=== PATIENT | male | born 1990 | race Caucasian/White ===

== ENCOUNTER 2020-10-06 15:14 | Emergency (ER) | payer MEDICAID, SELFPAY ==
[2020-10-06 15:15] VITALS: BP 121/79; PULSE 86; RESP 15; TEMP 36.8; O2SAT 100; BMI 24.4
--- NOTE | 2020-10-06 15:31 | EX.ED.VIS.EY ---
HPI History of Present Illness Chief Complaint: Eye Problem Informant: patient Onset/Context/Timing Location: Bilateral Eyes Onset: Days (3) Context: Gradual Onset Timing: Continuous Worsened by: Nothing Relieved by: Benadryl Associated Symptoms Associated Symptoms - Eyes: Drainage and Eyelid swelling; Negative for Burning, Crusting, Foreign body sensation, Itching, Matting, Pain, Photophobia and Redness History of injury: No Visual correction: None Narrative Narrative: Patient presents with redness and swelling to both eyes that has been getting worse over the past 3 days. Patient states it started in his forehead and now is localized to both periorbital areas. Patient states the swelling did improve with some Benadryl at home. Patient admits to some watery drainage. Patient denies any matting or crusting. Patient denies any redness. Patient denies any foreign body sensation. Patient denies any trauma or injury. Patient does not wear glasses or contacts. PFSH PFSH no medical history Home Medications NK 10/06/20 [History Last Taken Unknown] Allergy/AdvReac Type Severity Reaction Status Date / Time No Known Allergies Allergy Verified 10/06/20 15:14 Surgical History History of cholecystectomy Social History (Updated 10/06/20 @ 15:[address] Slava Best, ) Smoking Status: Current every day smoker tobacco type: cigarettes alcohol intake: current alcohol intake frequency: a few times a week substance use type: marijuana ROS ROS ED Constitutional Constitutional ED: Denies chills or fever(s) Eyes Eyes: Denies blurry vision or change in vision ENT ENT ED: Denies rhinorrhea or sore throat Cardiovascular Cardiovascular: Denies chest pain or palpitations Respiratory/Chest Respiratory/Chest: Denies cough or dyspnea Gastrointestinal Gastrointestinal: Denies nausea or vomiting Genitourinary Genitourinary ED: Denies dysuria or hematuria Musculoskeletal Musculoskeletal: Reports neck pain; Denies back pain Integumentary Denies abscess or rash Neurologic Neurologic: Denies headache(s) or weakness Allergic/Immunologic Allergic/Immunologic ED: Denies mouth swelling or urticaria EXAM Physical Exam Const Vital Signs: 10/06/20 15:15 Temperature 98.2 F Temperature Source Temporal Pulse Rate 86 Respiratory Rate 15 Blood Pressure 121/79 H Blood Pressure Mean 93 Pulse Ox 100 Oxygen Delivery Method Room Air Positive well nourished and well developed General Appearance ED: well developed HEENT atraumatic Eyes General Eye ED: Yes normal appearance of both eyes and normal light reflex Periorbital: periorbital findings abnormal bilateral swelling Eyelid: eyelids abnormal right upper eyelid (Swelling), right lower eyelid swelling, left upper eyelid swelling and left lower eyelid swelling Conjunctiva: conjunctiva normal Sclera: sclera normal Pupil: PERRL Direct Ophthalmoscopy: normal light reflex Neck supple and no JVD Neuro oriented x3, CN's II-XII intact bilaterally, moves all extremities and no sensory deficits noted Sensorium / Orientation: alert MDM MDM MDM Narrative Medical decision making narrative: Tetracaine and fluorescein dye was applied. Under slit lamp examination, there is no corneal abrasion. There are no foreign bodies noted. There is no discharge or drainage. Patient was advised that this most likely allergic reaction. Patient was instructed to take [id number] Claritin, Shanae, or Zyrtec as needed for swelling. Patient was instructed to use ice to the area. Patient was instructed to follow-up with his primary care physician in 5 to 7 days. Patient understood and was agreeable with the plan. All questions were answered. Discharge Plan Triage Chief Complaint: Eye Problem ED Provider: Slava Best Dx/Rx/DC Orders Clinical Impression: Allergic reaction Instructions: ED Conjunctivitis, Allergic Prescriptions: No Action NK RF: 0 Primary Care Provider: Care Physician,No Primary Referrals: Care Physician,No Primary [Primary Care Provider] - Arash Medina MD [STAFF PHYSICIAN] - 5-7 Days Disposition Disposition: Home, Self Care
[2020-10-06 17:00] VITALS: PULSE 74; RESP 16
[2020-10-06] MEDS: Tetracaine 0.5% Ophthalmic Bottle OPHTHALMIC (17:00)
[2020-10-06] MEDS: Fluorescein 1 MG STRIP 1 STRIP OPHTHALMIC (17:01)
== END 2020-10-06 17:02 | disposition home or self-care (01) ==
PROVIDERS: Emergency Provider Emergency Medicine
DX: T78.40XA Allergy, unspecified, initial encounter (principal); F17.210 Nicotine dependence, cigarettes, uncomplicated; X58.XXXA Exposure to other specified factors, initial encounter
CPT/HCPCS: 99283

== ENCOUNTER 2022-08-25 11:45 | Emergency (ER) | payer MEDICAID, SELFPAY ==
[2022-08-25 11:46] VITALS: BP 118/81; PULSE 79; RESP 16; TEMP 36.6; O2SAT 100
--- NOTE | 2022-08-25 12:09 | EKG12_ITS ---
Test Reason : Blood Pressure : / mmHG Vent. Rate : 058 BPM Atrial Rate : 058 BPM P-R Int : 176 ms QRS Dur : 114 ms QT Int : 418 ms P-R-T Axes : 053 -61 051 degrees QTc Int : 410 ms Sinus bradycardia with sinus arrhythmia Left anterior fascicular block Abnormal ECG Confirmed by ANIBAL MONSIVAIS, SUSY ([id number]), news assignment editor BELIA CAMACHO ([id number]) on 08/28/2022 1:16:47 PM Referred By: HIPOLITO Confirmed By:CARRILLO BARNETT MD
--- NOTE | 2022-08-25 12:23 | CM.ED ---
[facility] Crisis called to report they were on site with patient and law enforcement due to family concerns with depression/SI. Pt determined to be a danger to self with SI and a plan and was cooperative to come to the ED with his sister. Crisis evaluated and is recommending placement at this time. Daria Wing LAUNDRY ROOM ATTENDANT, FIELD IRONWORKER
--- NOTE | 2022-08-25 12:29 | EX.ED.DYSGE1 ---
HPI <JOSY Salamanca - Last Filed: 08/25/22 14:02> History of Present Illness Chief Complaint: Suicidal Narrative Narrative: 32-year-old male presents with suicidal ideation. States he has a history of depression which has never been treated. Its been worse recently due to multiple stressors but he will not give details. He states he lives with a friend and is unemployed. He has been thinking of hanging himself or shooting himself with a gun. He does not personally own a gun but there are firearms in the home. His family was concerned and called crisis who sent him to the ED for medical clearance. He is accompanied by his sister. He states he takes no medications and does not see any kind of doctor or psychiatrist. He has no history of suicide attempts or psychiatric admissions. PFSH <JOSY Salamanca - Last Filed: 08/25/22 14:02> [facility] Home Medications NK 10/06/20 [History Last Taken Unknown] Allergy/AdvReac Type Severity Reaction Status Date / Time No Known Allergies Allergy Verified 08/25/22 12:07 Surgical History (Updated 08/25/22 @ 12:05 by Melly Thompson) H/O inguinal hernia repair History of cholecystectomy Social History (Updated 10/06/20 @ 15:[address] Slava Best, ) Smoking Status: Current every day smoker tobacco type: cigarettes alcohol intake: current alcohol intake frequency: a few times a week substance use type: marijuana ROS <JOSY Salamanca - Last Filed: 08/25/22 14:02> ROS ED ROS Narrative Constitutional: Negative for fever, chills, malaise. CVS: Negative for chest pain. Respiratory: Negative for shortness of breath. GI: Negative for abdominal pain, nausea, vomiting. Neuro: Negative for headache. EXAM <JOSY Salamanca Last Filed: 08/25/22 14:02> Physical Exam Narrative Exam Narrative: CONST: Patient sitting in no acute distress. EYES: Normal inspection. NECK: Normal inspection. RESP: No respiratory distress, CTAB. CVS: Regular rate and rhythm, no murmur, no gallop. SKIN: Color normal, no rash, warm, dry, intact. EXTREMITIES: Normal appearance, no pedal edema. NEURO: Oriented x4. PSYCH: Flat affect. Const Vital Signs: 08/25/22 11:46 08/25/22 18:14 Temperature 97.8 F 97.3 F L Temperature Source Temporal Temporal Pulse Rate 79 58 L Respiratory Rate 16 16 Blood Pressure 118/81 H 118/83 H Blood Pressure Mean 93 94 Pulse Ox 100 99 Oxygen Delivery Method Room Air Room Air <Dr. Slava Best DO - Last Filed: 08/25/22 22:08> Physical Exam Const Vital Signs: 08/25/22 11:46 08/25/22 18:14 Temperature 97.8 F 97.3 F L Temperature Source Temporal Temporal Pulse Rate 79 58 L Respiratory Rate 16 16 Blood Pressure 118/81 H 118/83 H Blood Pressure Mean 93 94 Pulse Ox 100 99 Oxygen Delivery Method Room Air Room Air MDM <JOSY Salamanca - Last Filed: 08/25/22 14:02> MDM MDM Narrative Medical decision making narrative: Patient was sent in by crisis and is accompanied by his sister here for evaluation of suicidal ideation. He has a flat affect but is calm and answers questions appropriately. Screening medical exam unremarkable. Labs were ordered for medical clearance. Since he does have untreated depression with no physician support and plan to hang himself or shoot himself with access to firearms I do think he will require inpatient treatment. CBC and BMP are unremarkable. Alcohol negative. Urine tox screen positive for THC. Patient is medically cleared for transfer to psychiatric facility. Consults: Crisis Differential: depression, anxiety, SI, mood disorder Lab Data Attestation: I reviewed the patient's lab results. Labs: Laboratory Results - last 24 hr 08/25/22 08/25/22 12:35 13:00 WBC 8.7 RBC 4.96 Hgb 15.1 Hct 46.3 MCV 93.3 MCH 30.4 MCHC 32.6 RDW Std Deviation 49.4 H RDW Coeff of Clair 14.4 Plt Count 371 MPV 9.2 Immature Gran % (Auto) 0.600 Neut % (Auto) 46.1 L Lymph % (Auto) 35.0 [place] % (Auto) 9.9 Eos % (Auto) 6.9 H Baso % (Auto) 1.5 H Absolute Neuts (auto) 4.0 Absolute Lymphs (auto) 3.05 Nucleated RBC % 0 Sodium 139 Potassium 3.4 L Chloride 106 Carbon Dioxide 30.0 Anion Gap 3 L BUN 18 Creatinine 1.01 Estim Creat Clear Calc 118.66 Est GFR (MDRD) Af Amer 110 Est GFR (MDRD) Non-Af 91 BUN/Creatinine Ratio 17.8 Glucose 108 H Calcium 8.9 Urine Opiates Screen NEGATIVE Urine Methadone Screen NEGATIVE Ur Barbiturates Screen NEGATIVE Ur Phencyclidine Scrn NEGATIVE Ur Amphetamines Screen NEGATIVE MDMA (Ecstasy) Screen NEGATIVE U Benzodiazepines Scrn NEGATIVE Urine Cocaine Screen NEGATIVE U Cannabinoids Screen POSITIVE H Ur Drug Screen Comment Ethyl Alcohol < 3.0 EKG Initial EKG: Attestation: I personally reviewed and interpreted this EKG as follows: Interpretation: Sinus Rhythm and No Acute Injury Pattern Comments: Sinus bradycardia with sinus arrhythmia at 58 bpm, left anterior fascicular block, no acute ischemic changes <Dr. Slava Best, DO - Last Filed: 08/25/22 22:08> MDM Lab Data Labs: Laboratory Results - last 24 hr 08/25/22 08/25/22 12:35 13:00 WBC 8.7 RBC 4.96 Hgb 15.1 Hct 46.3 MCV 93.3 MCH 30.4 MCHC 32.6 RDW Std Deviation 49.4 H RDW Coeff of Clair 14.4 Plt Count 371 MPV 9.2 Immature Gran % (Auto) 0.600 Neut % (Auto) 46.1 L Lymph % (Auto) 35.0 [place] % (Auto) 9.9 Eos % (Auto) 6.9 H Baso % (Auto) 1.5 H Absolute Neuts (auto) 4.0 Absolute Lymphs (auto) 3.05 Nucleated RBC % 0 Sodium 139 Potassium 3.4 L Chloride 106 Carbon Dioxide 30.0 Anion Gap 3 L BUN 18 Creatinine 1.01 Estim Creat Clear Calc 118.66 Est GFR (MDRD) Af Amer 110 Est GFR (MDRD) Non-Af 91 BUN/Creatinine Ratio 17.8 Glucose 108 H Calcium 8.9 Urine Opiates Screen NEGATIVE Urine Methadone Screen NEGATIVE Ur Barbiturates Screen NEGATIVE Ur Phencyclidine Scrn NEGATIVE Ur Amphetamines Screen NEGATIVE MDMA (Ecstasy) Screen NEGATIVE U Benzodiazepines Scrn NEGATIVE Urine Cocaine Screen NEGATIVE U Cannabinoids Screen POSITIVE H Ur Drug Screen Comment Ethyl Alcohol < 3.0 Treatment and Re-Evaluation :: I have personally performed a face to face assessment of the patient and have reviewed the GUILHERME Note. I performed a substantive portion of the visit including all aspects of the following. My yan findings include: History: Patient presents with suicidal ideations. Patient states that his family brought him in for suicidal ideations. Patient states he does not have any suicidal ideations. Patient was evaluated by crisis who felt that the patient would benefit from inpatient admission. Patient was then referred to the emergency department for medical clearance. Exam: Vital signs are stable. Patient is afebrile. Patient is in no acute distress. Oral mucosa is pink and moist. Neck is supple. Trachea is midline. There is no JVD. Heart was regular rate and rhythm. Lungs are clear and equal bilaterally. Abdomen is soft and nontender. Cranial nerves II through XII are intact. There are no focal motor or sensory deficits noted. Patient does have a flat affect and depressed mood. Patient is currently denying any suicidal ideations. Medical Decision Making: Medical screening labs will be obtained. CBC will be obtained to assess for leukocytosis and anemia. Basic metabolic profile will be obtained to assess for electrolyte abnormality and renal function. Serum alcohol level will be obtained to assess for alcohol intoxication. Urine tox screen will be obtained to assess for substance abuse. COVID-19 rapid antigen will be obtained to assess for COVID-19 infection. EKG will be obtained to assess for cardiac dysrhythmia and QTc prolongation. On my independent interpretation, EKG showed a sinus bradycardia with a rate of 58. There are no acute changes noted. CBC was reviewed and was within normal limits. Basic metabolic profile was reviewed. Potassium was slightly low at 3.4. Anion gap was normal. Serum alcohol level was reviewed and was less than 3.0. Urine tox screen was reviewed and was positive for cannabinoids. COVID-19 rapid antigen was reviewed and was negative. Patient is medically cleared for psychiatric placement. Patient will be discussed with crisis. Charlo slip was placed on the chart. Crisis was able to have the patient placed at [facility] for psychiatry. Patient was transferred there. Discharge Plan Triage Chief Complaint: Suicidal ED Midlevel Provider: Ana Luisa Mattson ED Provider: Slava Best Dx/Rx/DC Orders Clinical Impression: Depression with suicidal ideation Prescriptions: No Action NK Primary Care Provider: Care Physician,No Primary Referrals: Care Physician,No Primary [Primary Care Provider] - Disposition Disposition: Psychiatric Hospital or Unit Discharge Location: [facility] Discharge Date/Time: 08/25/22 19:56
[2022-08-25 12:40] VITALS: BMI 23.7
[2022-08-25 12:46] LABS: Absolute Lymphocyte Count 3.05 X10^3/uL (0.83-4.51); Basophil# 0.13 X10^3/uL; Basophil% 1.5 % (0-1); Eosinophils% 6.9 % (0-5); Hematocrit 46.3 % (40-54); Hemoglobin 15.1 g/dL (13.0-16.5); Lymphocyte # 3.05 X10^3/ul (0.83-4.51); Mean Corp Hgb Conc 32.6 g/dL (32-36); Mean Corpuscular Hgb 30.4 pg (27.0-32.0); Mean Corpuscular Volume 93.3 fL (80-94); Mean Platelet Vol. 9.2 fl (6.2-12.0); Monocyte# 0.86 X10^3/uL; Monocyte% 9.9 % (0-10); NRBC Flagged by Analyzer 0 % (0-5); Neutrophil # 4.02 X10^3/uL (2.7-7.7); Neutrophil % 46.1 % (47-70); Platelet Count 371 K/mm3 (150-450); RBC Distribution Width CV 14.4 % (11.6-14.6); RBC Distribution Width SD 49.4 fl (35.1-43.9); Red Blood Count 4.96 M/mm3 (4.6-6.2); White Blood Count 8.7 K/mm3 (4.4-11.0)
[2022-08-25 13:00] LABS: Anion Gap 3 (5-15); BUN 18 mg/dL (7-18); BUN/Creat Ratio 17.8 RATIO (10-20); Calcium,Total 8.9 mg/dL (8.5-10.1); Chloride 106 mmol/L (98-107); Creatinine, Serum 1.01 mg/dL (0.70-1.30); EST Glomerular Filtration Rate 91 mL/min (>60); Est Glom Filt Rate - Afr Amer 110 mL/min (>60); Estimated Creatinine Clearance 118.66 ml/min; Glucose 108 mg/dL (74-106); Potassium 3.4 mmol/L (3.5-5.1); Sodium Level 139 mmol/L (136-145)
[2022-08-25 13:10] LABS: Alcohol, Blood (Medical)-Serum < 3.0 mg/dL
[2022-08-25 13:51] LABS: Amphetamine Urine VISTA NEGATIVE (<1000 ng/mL); Barbiturate Urine VISTA NEGATIVE (< 200 ng/mL); Benzodiazepine Urine VISTA NEGATIVE (< 200 ng/mL); Cocaine Urine VISTA NEGATIVE (< 300 ng/mL); Ecstacy Urine VISTA NEGATIVE (< 500 ng/mL); Methadone Urine VISTA NEGATIVE (< 300 ng/mL); PCP Urine VISTA NEGATIVE (< 25 ng/mL); THC Urine VISTA POSITIVE (< 50 ng/mL); Vista UDS pH Range 6
[2022-08-25 18:14] VITALS: BP 118/83; PULSE 58; RESP 16; TEMP 36.3; O2SAT 99
[2022-08-25] MEDS: LORazepam 0.5 MG Tablet PO (19:41)
== END 2022-08-25 19:56 ==
PROVIDERS: Physician Assistant; Emergency Provider Emergency Medicine; Visit Provider Emergency Medicine
DX: F32.A Depression, unspecified (principal); R45.851 Suicidal ideations; F12.90 Cannabis use, unspecified, uncomplicated; F17.210 Nicotine dependence, cigarettes, uncomplicated
CPT/HCPCS: 36415; 80048; 80307; 82077; 85025; 87811; 93005; 99284

== ENCOUNTER 2022-09-04 08:00 | Outpatient (RCR) | payer MEDICAID, SELFPAY ==
--- NOTE | 2022-09-04 09:00 | BH.SGPN.GN ---
Behaviors/Verbalizations/Mental Status: [] Eye contact is good. Motor activity is appropriate. Appearance is casual. Speech is Appropriate. Mood is anxious. Affect is congruent. Thoughts are linear and logical. No evidence of psychosis. Reviewed daily check in sheet and pt reports 1/5 for suicidal thoughts and 0/5 for intent. Completed [place] [facility] prior to group. Client Response/Progress/Benefit: [] Pt participated when prompted. Attentive. Daily symptom tracker notes 3/5 for anxiety and 1/5 for depression. This is pt's first day in IOP and he introduced himself to the group. Pt states that he has been stuck in his head which has exacerbated his depression and anxiety. Briefly shared his recent struggles. I can't get away from my thoughts they are always there. I just want to feel better about myself in general. Group empathized with his struggles and provided support and encouragement which was beneficial. No progress noted as this was pt's first day in IOP. Will continue in [facility] to prevent decompensation/re-admission to psych unit, maintain safety, and improve functioning. Narrative Note: []
--- NOTE | 2022-09-04 10:15 | BH.SGPN.GN ---
Behaviors/Verbalizations/Mental Status: []Pt alert and oriented, casually dressed and groomed. Eye contact good. Motor activity appropriate. Speech within normal limits. Affect congruent, mood anxious and depressed. Thoughts linear, logical, no signs of hallucinations or delusions. Client Response/Progress/Benefit: []Pt first day of tx. Responded well to session, attentive and providing to discussion. Pt connected with the quote and discussion reviewing the functions of various emotions. Attentive throughout psychoeducation on the functional role and benefits of guilt, as well as differences between appropriate and inappropriate guilt. Group discussed the harmful impacts of unmanaged guilt which included poor boundaries, feeling inadequate, and creating an unhealthy maintenance cycle. Pt participated in group activity highlighting the impacts of inappropriate guilt in team collaboration or reaching a goal. Pt then completed a self-reflection activity in which they identified their own experiences with inappropriate guilt and impacts on pt?s mental health. Shared struggling with inappropriate guilt related to feeling like a burden and this often leads to increased negative self-talk and isolation. Pt appeared to benefit from learning about the different types of guilt and how unmanaged guilt can impact mental health. Pt will continue IOP tx to promote mood stability, monitor medications, and improve daily functioning. Narrative Note: []
--- NOTE | 2022-09-04 11:15 | BH.SGPN.GN ---
Behaviors/Verbalizations/Mental Status: []Pt alert and oriented, neatly dressed and groomed. Eye contact good. Motor activity appropriate. Speech within normal limits. Affect congruent, mood depressed. Thoughts linear, logical, no signs of hallucinations or delusions. Client Response/Progress/Benefit: [] Pt engaged participant AEB listening attentively to others and providing input throughout group. During challenge activity pt worked cooperatively with small group. Pt made connection that it takes patience and problem solving to work through healthy and unhealthy guilt. Pt worked with his small group to identify strategies to manage unhealthy guilt. Pt stated he often feels inappropriate guilt of feeling like a burden. Pt selected wanting to work on the strategy of recognizing and challenging negative thoughts that reinforce inappropriate guilt. Pt seemed to benefit from learning about strategies to manage appropriate and inappropriate guilt. Pt to continue IOP to prevent decompensation, improve daily functioning, and gain healthy coping skills. Narrative Note: []
--- NOTE | 2022-09-04 15:02 | BH.COMM ---
Communication Note Communication with Client Communication Note: Completed initial paperwork with pt. No changes since intake appointment. Completed the CSSR-S with pt and pt is moderate-high risk. Pt denies any suicide attempts, but pt reports have fleeting SI with intent with the last month. Pt was recently admitted to an inpatient psych unit for suicidal ideations with thoughts of hanging himself. Pt denies any active SI, plan, or intent today. Pt is living with his sister and this is a protective factor. Pt does not have access to guns or stockpiles of medications. Discussed with tx team and Dr. Phan and pt will be admitted with diagnosis of unspecified mood disorder F. 39
--- NOTE | 2022-09-06 08:50 | BH.NA ---
Physical Data Vital Signs Pulse Rate: 68 Blood Pressure: 116/75 Height/Weight Height: 1.83 m Weight:: 74.843 kg Weight in Pounds: 165.0 lbs Nutritional History Appetite Nutritional Instructions: Describe your appetite:: Fair Additional nutritional information:: Client reports at some point in time he weighed 180lbs and has lost some weight. Client states his appetite varies. Functional Assessment Sleep Pattern Describe any problems with sleeping: Client states he is sleeping 6-8 hours per night, but does wake up every few hours. Sensory/Communication Assess Communication Problems Do you have difficulty understanding what people are saying?: No Medical Problems/History Pain Assessment Do you have acute or chronic pain?: No Surgical History Surgical History Have you had any surgeries? If so, list type and date:: Yes (cholecystectomy, inguinal hernia repair) Substance Abuse Substance Abuse Please describe substance abuse in the last 30 days:: Client states he used to drink some alcohol, but denies use in several months. Client states he has been a cigarette smoker since he was 16 years old and currently smokes 1 pack per day. Client states he uses marijuana 3-4 times per week, and states he has been a regular marijuana user since age 16. Client states he drinks 3 caffeinated drinks per day, and states 1-2 times a week drinks an energy drink. Mental Status Summary Mental Status Significant Findings/Observations on Appearance and Mood:: Client is alert and oriented x 4. Client is casually groomed. Client is cooperative with assessment. Client makes good eye contact. Client's voice has normal rate and volume. Client appears mildly depressed. Client has appropriate affect. Client makes logical associations and has normal processing. Client denies delusions/hallucinations. Client reports some passive SI at times since his hospitalization, but denies intent/plan. Past Psychiatric History MH Treatment Hx Past Psychiatric Medications:: None, Zoloft is the first medication he has been on for mental health Age of first mental health symptoms: Client states he has had some depression and SI off and on since he was a teenager. Describe (age, circumstance, etc) any past hospitalizations: 08/25-08/29/22- [facility] for suicidal ideations with thought to either shoot self or hang self Current providers for mental health treatment (counselor, psychiatrist, family service caseworker, etc.): Client has an appointment to see Dr. Abernathy on [place] [address] Fall Risk Assessment Age Age: Less than 60 Mental Status Mental Status: Willing & able to ask for assistance when needed Physical Status Physical Status: No problems Impairments Impairments: None Elimination Elimination: Continent AND independent Gait or Balance Gait or Balance: Walks independently Hx of Falls History of falls in the past 6 months: No known history Medications/Substances Psychotropics:: Antidepressants Medications/substances used within the past 24 hours or ordered to administer: 1-2 of the medications/substances listed above Total Score Total Points:: 1 RN Summary of Impressions Impressions Recommendations Impressions: Psychiatric Issues: 1. Rule out bipolar, NOS 2. Major depressive disorder, recurrent, severe without psychosis 3. Cannabis use disorder 4. Cluster B traits 5. History of alcohol use disorder Level of Care How do the client's current symptoms and functional deficits support need for this level of care?: Client was referred to IOP after his family had him seen by Crisis for suicidal ideations on 08/25/22. Client was then hospitalized at [facility] until 08/29/22. Client states he has had suicidal ideations off and on since he was a teenager. Since his hospitalization, Client states he has had some passive SI but denies intent/plan. Client does have a history of self-injury, and states he last hurt himself over a month ago. Client does report anhedonia, isolation, and decreased energy. IOP will promote gains and prevent further decompensation while providing social support and skills training.
--- NOTE | 2022-09-06 09:00 | BH.SGPN.GN ---
Behaviors/Verbalizations/Mental Status: [] Eye contact is poor. Motor activity is WNL. Appearance is casual. Speech is Appropriate. Mood is dysthymic and anxious. Affect is congruent. Thoughts are linear and logical. No evidence of psychosis. Reviewed daily check in sheet and reports a 1/5, with 5 being severe, for suicidal ideation, and a 0/5 for suicidal intention. This is below pt's baseline. Does not present as imminent risk for harm to self or others. Client Response/Progress/Benefit: [] Pt participated when prompted. Attentive. Daily symptom tracker notes 2/5 for depression and 1/5 for anxiety. Client reported mental health positive as getting to spend time with his nephew. Stated it was nice to connect with his nephew. Client reported additional win is cutting back on smoking cigarettes. Client reported current stressor as being social because he gets really anxious. Seemed to benefit from support from peers. Will continue in IOP to increase healthy coping skills, decrease avoidance of anxious situations, and prevent decompensation.
[2022-09-06 09:12] VITALS: BP 116/75; PULSE 68
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
--- NOTE | 2022-09-06 13:21 | BH.DR.ITP ---
Initial Treatment Plan Patient Information Visit Information: ADMISSION DATE: EXPECTED LOS: 4-6 weeks Problems/Symptoms Problem #1:: Depression Symptom:: Sadness, hopelessness, worthlessness, guilt, anhedonia, passive thoughts of , passive, fleeting suicidal ideation Problem #2:: Anxiety Symptom:: Worry, rumination
--- NOTE | 2022-09-06 15:10 | BH.MTP_ITS ---
Master Treatment Plan Patient Information Program Physician:: Dr. Mary Grace Phan Primary Therapist:: Mary RAMOS Psychiatric Diagnoses Psychiatric Diagnoses:: Rule out bipolar, NOS; Major depressive disorder, recurrent, severe without psychosis; Cannabis use disorder; Cluster B traits; History of alcohol use disorder Diagnosis Code(s):: F 33.2 Estimated LOS Estimated LOS (in weeks):: 6 Problem/Goal #1 Problem/Goal #1 Stated Goal:: Pt will reduce depressive symptoms, negative self-talk, thoughts of , hopelessness, and guilt due to Major Depressive Disorder through [facility] Services. Description of Barriers: Pt reports utilizing drinking and smoking marijuana to cope with his depression and anxiety. Pt reports a very negative view of self, feeling like a burden, and worthlessness. Pt also struggles with communicating his needs and isolation. Functional Impact: Pt is a 32-year-old male with a history of depression and anxiety. Pt was referred to [facility] tx following a recent psychiatric admission due to suicidal ideations with plans to hang or shoot himself. Pt currently endorses a depressed mood, lack of motivation, lack of energy, anhedonia, passive SI, ruminations, feeling like a burden, hopelessness, worthlessness, and negative view of self. Pt reports he isolates and withdraws from supports. Pt also has not been engaging in hobbies he used to enjoy. Pt's mental health is impacting his familial, social, and occupational functioning. Goal Relevant Strengths/Supports: Pt is connected with outpatient psychiatry and has support from his sister. Pt enjoys art and reading. Objectives Objective #1: Stated Objective: Pt will learn and utilize 2-3 healthy coping strategies to better manage depressive symptoms and reduce DSM-5 symptoms for depression. Interventions: Through group and individual sessions, therapist will help pt identify triggers and warning signs of depression and emotional dysregulation including emotional, physical, and behavioral changes. Therapist will teach pt various coping skills to manage symptoms. Therapist will use cognitive restructuring techniques and help pt gain awareness of negative thoughts that reinforce depressive cycles. Therapist will help pt incorporate mindfulness and emotional regulation skills when dealing with difficult situations. Discharge Criteria: Pt will have met this goal when pt can report learning and using at least 2 coping skills to manage depressive symptoms and DSM-5 scores for depression has decreased. Target Date: 10/16/22 Review Date: 09/25/22 Status: open Objective #2: Stated Objective: Pt will identify at least 2-3 negative self-talk messages used to reinforce negative core beliefs, worthlessness, and guilt and replace thoughts with balanced, realistic messages. Interventions: Therapist will help pt identify distorted, negative beliefs about self and replace with more realistic, affirmative messages. Therapist will use CBT and DBT to help pt increase insight to the connection between thoughts, emotions, and behaviors. Therapist will encourage pt to practice thought challenging. Discharge Criteria: Pt will have achieved this goal when can verbalize at least 2 cognitive distortions and effectively replace those thoughts with affirmative messages. Target Date: 10/16/22 Review Date: 09/25/22 Status: open Problem/Goal #2 Problem/Goal #2 Stated Goal:: Pt will reduce anxiety, rumination, and avoidance while increasing ability to function on daily basis. Description of Barriers: Pt reports utilizing drinking and smoking marijuana to cope with his depression and anxiety. Pt reports a very negative view of self, feeling like a burden, and worthlessness. Pt also struggles with communicating his needs and isolation. Functional Impact: Pt is a 32-year-old male with a history of depression and anxiety. Pt was referred to [facility] tx following a recent psychiatric admission due to suicidal ideations with plans to hang or shoot himself. Pt currently endorses a depressed mood, lack of motivation, lack of energy, anhedonia, passive SI, ruminations, feeling like a burden, hopelessness, worthlessness, and negative view of self. Pt reports he isolates and withdraws from supports. Pt also has not been engaging in hobbies he used to enjoy. Pt's mental health is impacting his familial, social, and occupational functioning. Goal Relevant Strengths/Supports: Pt is connected with outpatient psychiatry and has support from his sister. Pt enjoys art and reading. Objectives Objective #1: Stated Objective: Pt will identify 2-3 anxiety triggers and 2 coping skills to use when feeling anxious to manage anxiety as shown by decreasing DSM- 5 scores for anxiety. Interventions: Therapist will provide education on anxiety, avoidance behaviors, and maintenance cycles. Therapist will help pt explore personal symptoms and warning signs of anxiety. Therapist will teach pt coping skills to improve emotional regulation, mindfulness, and distress tolerance to help pt cope with anxiety in the moment. Discharge Criteria: Pt will have accomplished this goal when can identify at least 2 triggers and report using 2 coping skills to manage anxiety. Additionally, pt will have accomplished this goal when DSM-5 scores show a reduction for anxiety. Target Date: 10/16/22 Review Date: 09/25/22 Status: open Objective #2: Stated Objective: Pt will reduce avoidance behaviors that reinforce anxiety by setting 1-2 small exposure goals a week to increase self-confidence, increase mastery, and reduce anxiety over time. Interventions: through group and individual sessions, pt will learn about the benefits of setting exposure goals to overcome anxiety-producing situations. Therapist will help pt set SMART goals and challenge barriers. Therapist will use cognitive restructuring techniques and help pt gain awareness of negative thoughts that reinforce avoidance behaviors and fear of judgement. Therapist will help pt incorporate mindfulness, opposite action, and self-talk strategies to manage anxiety. Discharge Criteria: Pt will have accomplished this goal when can report accomplishing at least one small exposure goal a week. Additionally, pt will be able to report decreased avoidance behaviors. Target Date: 10/16/22 Review Date: 09/25/22 Status: open
--- NOTE | 2022-09-06 15:10 | BH.DS ---
Discharge Summary Demographics Date of Admission:: 09/04/22
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
--- NOTE | 2022-09-06 15:11 | BH.MDN ---
Multi-Disciplinary Note Note 30-min Individual: Time Started:: 10:50 Date: 09/06/22 Purpose of session/treatment goals addressed:: To gather information on pt's current stressors, symptoms, triggers, and tx goals. Another goal was to build rapport and provide emotional support. Eye Contact:: Good Motor Activity:: Appropriate Appearance:: Casual Speech:: Soft Mood:: Anxious and Depressed Affect:: Congruent Thoughts:: Linear, Logical and No evidence of hallucinations/delusions noted Staff Interventions:: thought challenging, rapport building, strengths perspective, treatment planning and goal setting Client Response:: Pt responded well to session, open to meeting with therapist. Pt shared this is his first time getting therapy and he is anxious. Pt stated he has social anxiety and tends to isolate and avoid. Pt stated he tends to dwell on the negatives and this ends up running my day. Pt used to enjoy drawing and he has thought about going into [employer] artistry, but his depression and negative thoughts of self have kept pt from getting back into his hobbies. Pt shared he wants to work on challenging his negative thoughts, get back to being productive, and feel better about himself. Pt stated he has struggled with his mental health for years. Pt is currently living with his sister and her children and he is close with them. Pt is not working and last worked for [employer]. Pt stated he needs to improve his mental health before returning to work. Pt shared meeting with Dr. Phan went well today, but overall he feels overwhelmed due to being out of his comfort zone. Pt receptive to encouragement from therapist and asked to meet on the same day each week if possible. Risks/Concerns:: Pt denies any active SI, plan, or intent as of 09/06/22. Pt does have fleeting SI that is passive, but denies he would act on these thoughts because of his family. Progress Toward Goals/Plan:: Pt's first week of IOP tx. Pt reports feeling anxious in the group setting, but he is challenging himself. Pt currently presents with a depressed mood, lack of self-esteem, lack of energy, passive SI, self-harm urges, rumination, lack of motivation, and anhedonia. Pt reports his symptoms are impacting his daily functioning as well as his social, occupational, and familial functioning. Pt will continue IOP tx to prevent decompensation, improve daily functioning, and gain healthy coping skills. Time Stopped:: 11:10
--- NOTE | 2022-09-08 09:00 | BH.SGPN.GN ---
Behaviors/Verbalizations/Mental Status: [] Eye contact is good. Motor activity is appropriate. Appearance is casual. Speech is Appropriate. Mood is depressed. Affect is congruent. Thoughts are linear and logical. No evidence of psychosis. Reviewed daily check in sheet and no reports of suicidal ideations or intent. Client Response/Progress/Benefit: [] Participated when prompted. Attentive. Emotion for today is ?lethargic?. Mental health win was completing responsibilities around the house. Shared ruminations and stress related to effectively communicating with his family. According to pt family are hypersensitive to his mood and often ask ?what is wrong?. Pt is frustrated that he does not have the answers to why is mood is often low which frustrates him and them. Group provided feedback and empathized with his struggles which was beneficial. Limited progress noted. Pt remains guarded during group interactions. Will continue in IOP to maintain safety, prevent decompensation/re-admission, and to stabilize mood. Narrative Note: []
--- NOTE | 2022-09-08 10:15 | BH.SGPN.GN ---
Behaviors/Verbalizations/Mental Status: []Pt alert and oriented, casually dressed and groomed. Eye contact good. Motor activity appropriate. Speech within normal limits. Affect flat, mood flat. Thoughts linear, logical, no signs of hallucinations or delusions. Client Response/Progress/Benefit: []Pt was an active participant during small group discussions. Attentive during psychoeducation on the six types of boundaries. Pt along with peers contributed to interactive discussion on defining what a boundary is and group identified challenges to setting boundaries. Pt discussed personal barriers of not feeling confident in assertive communication and fear of hurting others. Pt?s group also identified the benefits of boundary setting which included ?inner peace.? Pt contributed during his small group discussion. benefited from increased awareness and insight on the importance/benefit to setting health boundaries. Will continue IOP tx to prevent decompensation, reduce suicidal ideations, and improve daily functioning. Narrative Note: []
--- NOTE | 2022-09-08 11:15 | BH.SGPN.GN ---
Behaviors/Verbalizations/Mental Status: []Pt alert and oriented, casually dressed and groomed. Eye contact fair to good. Motor activity appropriate. Speech within normal limits. Affect congruent, mood depressed and anxious. Thoughts linear, logical, no signs of hallucinations or delusions. Client Response/Progress/Benefit: []Pt remained an active participant AEB providing contributions to group discussion, listening attentively to others, and engagement in small group discussion. Pt attentive during psychoeducation on the different boundary styles. Pt did well to work within the small group on identifying strategies for establishing and maintaining healthy boundaries. Pt identified wanting to work on improving his emotional boundaries by taking steps to increase his awareness of when he is being more flexible with his boundaries than he would like and taking steps to communicate this. Appeared to benefit from increased awareness of boundary styles and strategies to improve setting boundaries. Will continue IOP tx to increase consistent use of healthy coping skills, challenge distortions, and prevent decompensation. Narrative Note: []
--- NOTE | 2022-09-12 09:00 | BH.SGPN.GN ---
Behaviors/Verbalizations/Mental Status: [] Pt alert and oriented, neatly dressed and groomed. Eye contact good. Motor activity appropriate. Speech within normal limits. Affect congruent, mood calm. Thoughts linear, logical, no signs of hallucinations or delusions. Reviewed pt?s symptom tracker, no risk for suicidal ideation, plan, or intent 09/12/22 Client Response/Progress/Benefit: []Pt responded well to session, quiet, but sharing when prompted. Pt reports feeling tired this morning and he stated coming to IOP is a win because he still struggles with the anxiety of attending group. Pt shared over the weekend he went to a family event which pt has not been able to do for a while. Pt stated I mostly kept to myself, but at least I went. Pt connected that he could still be tired from attending this event as pt is not used to social gatherings. Pt denies having any stressors today. Pt appeared to benefit from reflecting on his wins and connecting with peers. Pt will continue IOP tx to prevent decompensation, increase use of healthy coping skills, and improve daily functioning. Narrative Note: []
--- NOTE | 2022-09-12 11:10 | BH.SGPN.GN ---
Behaviors/Verbalizations/Mental Status: []Client alert and oriented, casually dressed and groomed. Eye contact fair. Motor activity appropriate. Speech within normal limits. Affect constricted, mood anxious. Thoughts linear, logical, no signs of hallucinations or delusions. Client Response/Progress/Benefit: []Pt was attentive throughout AEB contributing at times to small group discussion and self-reflection. Group finished processing cues to anger worksheet. Pt worked on completing his own anger cycle. Shared one of his anger cycles is when someone lies to him he thinks about worst case scenarios, feels withdrawn, and results in him being less trusting. Pt attentive as group brainstormed healthy coping skills for better managing anger which included: music, walking/exercise, taking a break, grounding tools, reflection, and journaling. Pt worked in small groups to identify ways could interrupt his anger cycle. Pt appeared to benefit from identifying different techniques to manage anger as well as gaining awareness of potential consequences of unmanaged anger. Will continue IOP tx to challenge negative thinking, build confidence, and prevent decompensation.
--- NOTE | 2022-09-12 11:10 | BH.SGPN.GN ---
Behaviors/Verbalizations/Mental Status: []Pt alert and oriented, casually dressed and groomed. Eye contact good. Motor activity appropriate. Speech within normal limits. Affect congruent, mood depressed and anxious. Thoughts linear, logical, no signs of hallucinations or delusions. Client Response/Progress/Benefit: []Pt responded well to session AEB contributing to discussion, taking notes, and listening attentively to others. Group discussed the benefits of managed anger and anger as a secondary emotion. Pt shared perspective on personal benefits of anger as emotional release. Pt completed worksheet on anger triggers and personal warning signs of anger. Pt identified their biggest triggers as having to repeat himself, unexpected stress, and losing things. Appeared to benefit from increased knowledge of the anger cycle as well as personal triggers. Pt to continue IOP to promote healthy coping skill application, improve mood stability, and prevent decompensation. Narrative Note: []
--- NOTE | 2022-09-14 10:10 | BH.SGPN.GN ---
Behaviors/Verbalizations/Mental Status: []Pt alert and oriented, casually dressed and appearing disheveled/ungroomed. Eye contact good. Motor activity appropriate. Speech within normal limits. Affect congruent, mood depressed and anxious. Thoughts linear, logical, no signs of hallucinations or delusions. Client Response/Progress/Benefit: []Pt was an active participant AEB providing input and was actively taking notes. Did well to participate and provide suggestions in group activity. Connected with the topic of pitfalls and listened to group discussion on internal and external barriers that prevent from choosing a healthier path to mental wellness. Group worked together to identify examples of personal internal pitfalls and pt identified his as isolation, poor communication, and negative self-talk. Pt benefited from group as Pt learned to better identify and normalize potential barriers to improving mental health symptoms. Pt will continue IOP tx to prevent decompensation, increase mood management skills, and continue to promote healthy communication with supports. Narrative Note: []
--- NOTE | 2022-09-14 11:10 | BH.SGPN.GN ---
Behaviors/Verbalizations/Mental Status: []Pt alert and oriented, casually dressed and groomed. Eye contact fair. Motor activity appropriate. Speech within normal limits. Affect constricted. Mood anxious and dysthyic. Thoughts linear, logical, no signs of hallucinations or delusions. Client Response/Progress/Benefit: []Pt was a mostly passive participant AEB limited contribution to discussion, however did appear attentive, taking notes, and willingness to engage in group activity. Connected with the topic of pitfalls and listened to group discussion on internal and external barriers that prevent from choosing a healthier path to mental wellness. Group worked together to identify examples of internal pitfalls. Pt identified personal pitfalls to include: isolation, fear of failure, poor communication, poor planning, negative self-talk, and complacent. Pt benefited from group as Pt learned to better identify and normalize potential barriers to improving mental health symptoms. Pt to continue IOP to increase healthy coping skills, improve daily functioning, and prevent decompensation.
--- NOTE | 2022-09-14 15:26 | BH.MDN ---
Multi-Disciplinary Note Note 30-min Individual: Time Started:: 12:00 Date: 09/14/22 Purpose of session/treatment goals addressed:: To work on goal #1 of pt's tx plan with focus on maintenance cycles. Eye Contact:: Good Motor Activity:: Appropriate Appearance:: Casual Speech:: Appropriate Mood:: Depressed Affect:: Congruent Thoughts:: Linear, Logical and No evidence of hallucinations/delusions noted Staff Interventions:: psychoeducation on: (maintenance cycles), CBT techniques, rapport building, strengths perspective, goal setting and taught coping skills Client Response:: Pt responded well to session, open to meeting with therapist. Pt reports he has been feeling less anxious in group and he is getting more used to the routine. Pt is still anxious in general, but he pushed himself to go to a family event recently and was proud of himself for attending. Pt receptive to learning about maintenance cycles and how this could help pt better manage his depressive and anxiety symptoms. Pt learned about the cognitive triangle and identified personal examples for thought patterns and behaviors. Pt stated when he wakes up anxious or depressed he tends to tell himself why try this day is ruined or pt will tell himself that others will shotweld operator him or pt will be a burden. Pt then isolates in his bedroom and avoids supports. Pt shared he is learning the difference between isolating and self-care. Pt shared he wants to get better with not isolating and being able to communicate what he needs from his supports. Pt learned about opposite action and why that can be helpful. Pt receptive to setting goals for the weekend that utilize opposite action such as potentially drawing or organizing his art supplies. Risks/Concerns:: Pt denies any active SI, plan, or intent as of 09/14/22. Pt is future oriented. Progress Toward Goals/Plan:: Pt is responding well to IOP tx and reports he is getting less anxious about group treatment each day he attends. Pt reports he is learning skills and he benefitting from group feedback. Pt continues to endorse a depressed mood, isolative behaviors, anhedonia, lack of motivation, lack of energy, and worthlessness. Pt's SI has decreased already since his first day. Pt will continue IOP tx to prevent decompensation, improve daily functioning, and increase ability to challenge distortions. Time Stopped:: 12:26
--- NOTE | 2022-09-15 09:05 | BH.SGPN.GN ---
Behaviors/Verbalizations/Mental Status: [] Eye contact is good. Motor activity is appropriate. Appearance is casual. Speech is Appropriate. Mood is depressed. Affect is congruent. Thoughts are linear and logical. No evidence of psychosis. Reviewed daily check in sheet and no reports of suicidal ideations or intent. Client Response/Progress/Benefit: [] Pt participated when prompted. Attentive. Daily symptom tracker notes 2/5 for anxiety and depression. Emotion for today is content. States I'm in the same place I was yesterday. I'm trying to go with the flow. Increased social interaction with family. Less isolation. Attempting to make healthy changes as he is cutting back on smoking. Progress noted per pt report with increased socialization, decrease isolation, and less depression. Benefited from group support, encouragement, and feedback. Will continue in IOP to prevent decompensation/re-admission, increase healthy coping, and improve functioning. Narrative Note: []
--- NOTE | 2022-09-15 10:03 | BH.SGPN.GN ---
Behaviors/Verbalizations/Mental Status: [] Client alert and oriented, neatly dressed and groomed. Eye contact good. Motor activity appropriate. Speech within normal limits. Affect full, mood euthymic. Thoughts linear, logical, no signs of hallucinations or delusions Client Response/Progress/Benefit: [] Client was an active participant in group discussion and experiential activity. Attentive during psychoeducation on resilience. Participated in interactive discussion with peers on the definition of resilience and where it comes from. Group identified that resiliency can be impacted by; past experiences, physical and mental health status, and supports. Able to relate experiential activity of group juggle to topics of resilience. Worked well with peers in small group in which they identified factors that contribute to resilience. Benefited from increased awareness of resilience and the factors that contribute to building resilience. Will continue in IOP to increase overall functioning and utilize healthy coping skills. Narrative Note: []
--- NOTE | 2022-09-15 11:13 | BH.SGPN.GN ---
Behaviors/Verbalizations/Mental Status: [] Client alert and oriented, neatly dressed and groomed. Eye contact good. Motor activity appropriate. Speech within normal limits. Affect flat, mood euthymic. Thoughts linear, logical, no signs of hallucinations or delusions Client Response/Progress/Benefit: [] Client responded well to session AEB completing the resilience worksheet provided. Client actively participated in the discussion and worked cooperatively with group to identify strategies to enhance each of the components discussed. Client reports belief they already use resilience trait of ?moving towards goals? Client discussed that they could work on avoid seeing crises as insurmountable problems. Client seemed to benefit from discussing strategies for improving personal resilience and identifying resilience traits client already possesses. Will continue IOP tx to prevent decompensation and challenge negative beliefs. Narrative Note: []
== END 2022-09-18 23:59 ==
LOC: BHIOP 08:00
PROVIDERS: PCP Family Medicine; Referring Provider Psychiatry & Neurology Psychiatry; Visit Provider Psychiatry & Neurology Psychiatry
DX: F33.2 Major depressive disorder, recurrent severe without psychotic features (principal); F12.90 Cannabis use, unspecified, uncomplicated; F10.90 Alcohol use, unspecified, uncomplicated
CPT/HCPCS: 90792; H2012; H2020; S9480; T1002; 90832

== ENCOUNTER 2022-09-19 07:17 | Outpatient (RCR) | payer MEDICAID, SELFPAY ==
--- NOTE | 2022-09-14 09:00 | BH.SGPN.GN ---
Behaviors/Verbalizations/Mental Status: [] Eye contact is good. Motor activity is appropriate. Appearance is casual. Speech is Appropriate. Mood is depressed. Affect is congruent. Thoughts are linear and logical. No evidence of psychosis. Reviewed daily check in sheet and no reports of suicidal ideations or intent. Client Response/Progress/Benefit: [] Pt participated when prompted. Attentive. Emotion for today is content. Identifies overall mood, motivation, and energy improvement. States I started drawing again yesterday which is a hobby that he has not attempted in several months. Elaborated on how this was beneficial for his mental health. He also is attempting to decrease his nicotine use. Progress noted as he is making healthier decisions, reports increase motivation, increased pleasure in activities, and reports to be more social. Benefited from group support, encouragement, and feedback. Will continue in IOP to maintain safety, prevent decompensation/re-admission to psych unit, and to improve functioning. Narrative Note: []
[2022-09-19 00:42] VITALS: BP 116/75; PULSE 68
--- NOTE | 2022-09-19 09:05 | BH.SGPN.GN ---
Behaviors/Verbalizations/Mental Status: [] Pt alert and oriented, neatly dressed and groomed. Eye contact good. Motor activity appropriate. Speech within normal limits. Affect constricted. mood anxious. Thoughts linear, logical, no signs of hallucinations or delusions. Reviewed pt?s symptom tracker, no risk for suicidal ideation, plan, or intent 09/19/22 Client Response/Progress/Benefit: []Pt responded well to session, attentive and engaged. Pt reports feeling indifferent this morning. Pt is anxious about having to get his certificate, but the group helped pt feel less anxious by telling him what to expect. Pt gave himself credit for cleaning at home and spending time with his brother. Pt shared cleaning was helpful and it improved his mood. Pt appeared to benefit from reflecting on their application of coping skills. Pt will continue IOP tx to promote mood stability, further reduce isolation, and increase self-esteem. Narrative Note: []
--- NOTE | 2022-09-19 10:05 | BH.SGPN.GN ---
Behaviors/Verbalizations/Mental Status: [] Eye contact is good. Motor activity is appropriate. Appearance is casual. Speech is Appropriate. Mood is depressed. Affect is flat. Thoughts are linear and logical. No evidence of psychosis Client Response/Progress/Benefit: [] Pt participated at times during group discussions. Attentive during psychoeducation on 4 Communication Styles (Passive, Passive-Aggressive, Aggressive, Assertive). Convened in small group and participated during interactive discussion on benefits and disadvantages of each communication style. Majority of this group was based in introducing and educating on communication styles. Pt choose not to share when asked about communication styles he most often utilizes. Benefited from increased education and awareness on communication styles and their impact on relationships/mental health. Will continue in IOP to prevent decompensation/re-admission to psych unit, maintain safety, stabilize mood, and to increase healthy coping. Narrative Note: []
--- NOTE | 2022-09-19 11:10 | BH.SGPN.GN ---
Behaviors/Verbalizations/Mental Status: []Client alert and oriented, casually dressed and appropriately groomed. Eye contact fair. Motor activity appropriate. Speech WNL. Affect constricted, mood anxious. Thoughts linear, logical, no signs of hallucinations or delusions. Client Response/Progress/Benefit: []Client responded well to session AEB client listening attentively to others and providing input during group discussion on the pay offs and costs of the different communication styles. Client able to connect how current communication style impacts mental health. Client engaged in activity, used assertive communication throughout in order to accomplish task. Connected with peers comments about importance of using assertive communication. Client shared he struggles with appearing confident when communicating. Client stated he is going to try and work on not fidgeting, maintaining eye contact, and speaking clearly. Client seemed to benefit from increasing awareness of healthy strategies to improve communication. Will continue IOP tx to decrease anxiety, increase healthy coping skills, and prevent decompensation.
--- NOTE | 2022-09-20 12:15 | PCM.BH.PN_ITS ---
Progress Note Progress Note: And history of Present Illness/Interim History: The patient is a 32-year-old single male with a history of depression for many years who is seen in follow-up at the [facility] behavioral health IOP program. I last saw the patient 2 weeks ago and at that time he had been on Zoloft for 1 week that was started in the hospital. The patient is tolerating the Zoloft well and denies any side effects. He states that he is still anxious and worrying. His mood is a little better but still depressed off-and-on. He has had some transportation issues getting to the program but when he is here the patient is engaged and it feels he is benefiting from the program. He has had some thoughts of self-harm but denies any cutting or other actions of self-harm. He still has occasional passive thoughts that he would not care if he but he states that this is happening much less often than before. He still has passive, fleeting suicidal ideation at times but he states that this is happening only about twice a week now. He is enjoying reading and drawing now and has much less anhedonia. The patient has decreased his marijuana use to about 3 bowls a week lately and denies any other alcohol or drug use. Patient continues to have and is working on his issues with having a job where he feels fulfilled and is able to hold the job and keep it. Current Psychiatric Medications: [] Zoloft 25 mg p.o. daily (started 3 weeks ago) Mental Status Examination: [] The patient is seen by telehealth today and they lighting is poor so the patient appears somewhat in the dark and it is difficult to see facial features clearly. He remains a thin, 32-year-old male who appears normal for stated age and appears casually dressed and groomed with good hygiene. He has no apparent psychomotor agitation or retardation. He is cooperative during the interview. Eye contact is good and speech is normal rate and rhythm and fluent with no pressure. Mood is anxious and depressed. Affect is constricted. Thought process is goal-directed and organized. Thought content: There is evidence of passive thoughts of and passive, fleeting suicidal ideation but only a few times a week now. There is evidence of thoughts of self-harm but the patient has used the skills he is learning to avoid any actions of self-harm. There is no evidence of plan for suicide, active suicidal ideation, homicidal ideation, hallucinations, delusions or symptoms of roro. Reality testing is intact. Judgment is intact. Insight is limited. Impulsivity is high. Diagnoses: [] 1. Major depressive disorder, recurrent, severe without psychosis 2. Rule out bipolar, NOS 3. Generalized anxiety disorder 4. Cluster B traits 5. Cannabis use disorder 6. History of alcohol use disorder 7. Primary support, work and financial issues Plan: [] The patient will continue the IOP program at [facility] as the structure, support, education and group therapy will hopefully prevent worsening of the patient's symptoms which could require rehospitalization. He felt safe during the interview and if it anytime he does not feel safe he will let us know or go to the emergency room. The risk, options, possible complications and side effects of the medications were discussed again with the patient and he understands and accepts these. The patient agrees to increase his Zoloft to 50 mg p.o. daily. He will continue to be on the look out for any symptoms of hypomania or roro. I will see the patient in follow-up in 2 weeks and he will continue to follow-up with his outpatient providers.
--- NOTE | 2022-09-21 09:00 | BH.SGPN.GN ---
Behaviors/Verbalizations/Mental Status: [] Pt alert and oriented, neatly dressed and groomed. Eye contact fair. Motor activity appropriate. Speech within normal limits. Affect congruent, mood depressed. Thoughts linear, logical, no signs of hallucinations or delusions. Reviewed pt?s symptom tracker, no risk for suicidal ideation, plan, or intent 09/21/22 Client Response/Progress/Benefit: []Pt responded well to session, attentive and receptive to feedback. Pt reports feeling calm today but pt also shared I actually don't know how I feel. Pt had a hard time coming up with wins today, but the group helped challenge and encourage pt. Pt stated he feels disappointed because his Zoloft was recently increased. Peers could relate to this feeling and offered pt advice, support, and ways to reframe which pt seems to benefit from. Pt appeared to benefit from connecting with peers and challenging perspective. Pt will continue IOP tx to prevent decompensation, improve daily functioning, and combat distorted thought patterns. Narrative Note: []
--- NOTE | 2022-09-21 11:15 | BH.MDN_ITS ---
Multi-Disciplinary Note Note 45-min Individual: Time Started:: 11:15 Date: 09/21/22 Purpose of session/treatment goals addressed:: To work on goal #1 of pt's tx plan. Eye Contact:: Good Motor Activity:: Appropriate Appearance:: Casual Speech:: Appropriate Mood:: Depressed Affect:: Constricted Thoughts:: Linear, Logical and No evidence of hallucinations/delusions noted Staff Interventions:: thought challenging, psychoeducation on: (cognitive distortions), CBT techniques, strengths perspective, goal setting and other (gave homework to identify cognitive distortions and begin keeping track of his wins.) Client Response:: Pt responded well to session, open to meeting with therapist. Pt shared he has not been doing as well over the past two days since meeting with Dr. Phan and getting a medication increase. Pt stated he feels this way because he has internal stigma with medication and I feel like if it didn't work at a lower dose, why would it work now. Pt receptive to thought challenging and revisiting the cognitive triangle. Pt learned that some medications need to be at a higher dose to be more therapeutic. Pt receptive to learning about the 10 common cognitive distortions and pt stated he connects most with mind-reading, disqualifying the positives, and overgeneralizing. Pt gave examples of mind-reading and shared when he mind-reads he becomes anxious, self-conscious, and tends to withdraw from support. Pt receptive to learning strategies to begin thought challenging as well as how to catch negative thinking patterns. Pt's homework was to begin catching distortions and practice keeping track of his wins this weekend. Risks/Concerns:: Pt reports he still has fleeting, SI that is passive. Pt shared belief that his SI is reducing in intensity and frequency which pt recog nizes as progress. Progress Toward Goals/Plan:: Pt is making progress towards his tx goals AEB pt's self-report of reduced intensity of SI over the past two weeks. Pt also has been becoming more engaged in group sessions and reporting less anxiety around peers. Pt's depression and anxiety is still severe and impacting his functioning. Pt reports his negative thinking patterns reinforce lack of motivation and anhedonia. Pt receptive to homework of beginning to keep track of wins. Pt will continue IOP tx to prevent decompensation, improve daily functioni ng, and increase self-confidence.
--- NOTE | 2022-09-22 09:05 | BH.SGPN.GN ---
Behaviors/Verbalizations/Mental Status: [] Eye contact is good. Motor activity is appropriate. Appearance is casual. Speech is Appropriate. Mood is euthymic. Affect is full. Thoughts are linear and logical. No evidence of psychosis. Reviewed daily check in sheet and no reports of suicidal thoughts. Client Response/Progress/Benefit: [] pt participated when prompted. Attentive. Daily symptom tracker notes 03/26 for anxiety and depression. Reports overall his mood and functioning have improved. Mental health wins include spending time with nephews and completing task (cleaning). Shared that being social and active have been very difficult for him over the past several months due to his depression. The emotion for today is satisfied. Feels guilty when he isolates or take naps, however the group normalized these behaviors. Progress noted per pt report with increased energy and functioning. Benefited from group support, encouragement, and feedback. Will continue in IOP to maintain safety, prevent decompensation/ re-admission, and to increase healthy coping. Narrative Note: []
--- NOTE | 2022-09-22 10:15 | BH.SGPN.GN ---
Behaviors/Verbalizations/Mental Status: []Pt alert and oriented, neatly dressed and groomed. Eye contact good. Motor activity appropriate. Speech within normal limits. Affect flat, mood depressed and anxious. Thoughts linear, logical, no signs of hallucinations or delusions. Client Response/Progress/Benefit: []Pt was an active?participant in small group discussion. Pt?s group worked together to identify benefits of healthy relationships which include; reduce stress, provide motivation, and fulfill needs. Group identified factors that lead to unhealthy relationships. Pt did not identify personal factors, but agreed with his group that lack of awareness of healthy can be a barrier. Actively participated in group experiential activity and expressed ideas to group. Benefited from increased insight and awareness of benefits of healthy relationships and factors that contribute to unhealthy relationships. Will continue IOP tx to prevent decompensation, improve emotional regulation skills, and reduce negative thinking patterns. Narrative Note: []
--- NOTE | 2022-09-22 11:10 | BH.SGPN.GN ---
Behaviors/Verbalizations/Mental Status: [] Client alert and oriented, casually dressed and groomed. Eye contact good. Motor activity appropriate. Speech within normal limits. Affect congruent, mood depressed, anxious. Thoughts linear, logical, no signs of hallucinations or delusions. Client Response/Progress/Benefit: [] Client responded well to session, engaged and taking notes. Worked with group to identify characteristics of healthy and unhealthy relationships. Attentive during psychoeducation about characteristics of healthy, unhealthy, and abusive relationships. Client stated within their current relationships he does well with respect. Client reported an area he would like to improve in is communication. Client shared he could so by working to check-in daily with supports. Appeared to benefit from identifying area client wants to work on to build healthier relationships. Client to continue IOP to increase healthy coping skills, challenge distortions, and prevent decompensation. Narrative Note: []
--- NOTE | 2022-09-28 10:05 | BH.SGPN.GN ---
Behaviors/Verbalizations/Mental Status: []Pt alert and oriented, neatly dressed and groomed. Eye contact good. Motor activity appropriate. Speech within normal limits. Affect congruent, mood depressed. Thoughts linear, logical, no signs of hallucinations or delusions. Client Response/Progress/Benefit: [] Pt was active participant in group discussions and activities. Attentive during psychoeducation. Pt listened during interactive discussion in which the group defined self-care and discussed its benefits. ?Worked with peers in a small group to identify myths related to self-care which included; it takes too much time/money, I don?t deserve it, and it means I?m selfish. Pt participated in small groups where they worked to bust these self-care myths. Pt shared he struggles with self-care because he tells himself ?it won?t help anyway.? Benefited from increased awareness of self-care, its benefits, and the consequences of not utilizing self-care strategies. Will continue IOP tx to reduce isolation, combat distorted thinking patterns, and improve daily functioning. ? Narrative Note: []
--- NOTE | 2022-09-28 11:05 | BH.SGPN.GN ---
Behaviors/Verbalizations/Mental Status: []Pt alert and oriented, neatly dressed and groomed. Eye contact good. Motor activity appropriate. Speech within normal limits. Affect congruent, mood calm. Thoughts linear, logical, no signs of hallucinations or delusions. Client Response/Progress/Benefit: [] Pt engaged participant AEB completing self-assessment worksheet and providing input throughout discussion. Pt completed worksheet identifying current self-care practices and what self-care activities pt wants to start using. Pt selected social self-care to begin practicing more consistently. Pt plans to do this by trying to reach out to old supports and identifying any toxic people in his life. Appeared to benefit from completing the self-care evaluation and gaining insights into current self-care practices, as well as identifying areas in which pt would like to improve upon.? Pt will continue IOP tx to prevent decompensation, increase healthy coping skills, and reduce negative thinking patterns. Narrative Note: []
--- NOTE | 2022-09-28 13:49 | BH.MDN ---
Multi-Disciplinary Note Note 45-min Individual: Time Started:: 09:15 Date: 09/28/22 Purpose of session/treatment goals addressed:: To work on goal #1 of pt's treatment plan, specifically focusing on thought challenging. Eye Contact:: Good Motor Activity:: Restless Appearance:: Casual Speech:: Appropriate Mood:: Depressed Affect:: Constricted Thoughts:: Linear, Logical and No evidence of hallucinations/delusions noted Staff Interventions:: thought challenging, CBT techniques, strengths perspective and goal setting Client Response:: Pt responded well to session, open to meeting with therapist. Pt reports the week has been alright and shared that yesterday he went for a walk. Pt also did some art this weekend, but pt struggles with getting back into art fully because of his all or nothing thinking. Pt learned about the common cognitive distortions last session, but he shared he forgot to practice labeling his distortions. Pt shared I just know I dwell on the past which often leads to pt ruminating and then shutting down. Pt receptive to practicing thought challenging using a thought log in session. Pt used some recent examples of I'm not contributing to this conversation and I did something wrong and that's why they were upset. With help, pt able to reframing these thoughts and challenge them using socratic questions and evidence. Pt does not feel comfortable challenging these yet without support, but he was receptive to continuing to identify wins each day. Pt also agrees to try painting knowing that his art will not be perfect. Risks/Concerns:: Pt denies any active SI, plan, or intent as of 09/28/22. Pt has thoughts of , but no suicidal ideations. Future oriented. Progress Toward Goals/Plan:: Per pt's DSM-5 scores, pt has decreased overall symptoms by 23% since admission. Pt's depression has decreased by 29% and SI has decreased by 33%. Pt has been taking his medications consistently at the new dose. Pt reports he has been identifying wins consistently and he is trying to get back into drawing. Pt's negative thought patterns continue to be his biggest stressor and barrier. Pt receptive to practicing thought challenging in session and for homework. Pt will continue IOP tx to prevent decompensation, promote use of healthy coping skills, and improve daily functioning. Time Stopped:: 09:50
--- NOTE | 2022-09-28 14:15 | BH.MTP_ITS ---
Treatment Plan Review Demographics Date of Admission:: 09/04/22 Date of Treatment Plan Review:: 09/28/22 Admitting Diagnoses:: Rule out bipolar, NOS; Major depressive disorder, recurrent, severe without psychosis; Cannabis use disorder; Cluster B traits; History of alcohol use disorder Current Diagnoses:: Rule out bipolar, NOS; Major depressive disorder, recurrent, severe without psychosis; Cannabis use disorder; Cluster B traits; History of alcohol use disorder Patient Status Patient's Response to Treatment:: Pt is making progress on his tx goals AEB pt's reduction in over DSM-5 symptoms by 23% since admission. Depression has decreased by 29% and SI has decreased by 33% since admission. Pt applies coping skills outside of [facility] and reports overall mood is improving. Pt is working on his goals and has been consistent with medications. Status of Current Problems and Symptoms: Low self-esteem, negative self-talk with negative core beliefs, lack of motivation, some isolative behaviors, feelings of being a burden/worthless, ruminations, and anxiety. Progress Problem #1: Problem Name:: Depressive sx, hopelessness, guilt, negative self-talk, suicidal ideation. Status of Goals:: Objective 1- complete with ongoing work encouraged to further reduce symptoms. Pt?s depression has decreased by 29% and SI has decreased by 33% since admission. Pt reports getting better with not isolating, but pt still struggles with shutting down and getting back into old hobbies due to fear of failure. Pt reports using opposite action, thought challenging, and walking. Objective 2- in progress. Pt can identify negative self-talk statements and core beliefs. Pt is working on developing new, more balanced core beliefs. Team Recommendations:: Treatment tx recommends pt continue working on this goal to further reduce isolation and negative self-talk that reinforces depression. Therapist will also help pt find an outpatient therapist for when pt discharges from [facility] tx. Problem #2: Problem Name:: Anxiety, rumination, and avoidance Status of Goals:: Objective 1-in progress. Pt?s DSM-5 scores for anxiety have decreased by 22% since admission. Pt reports opposite action, thought challenging, and exposure in the group setting has helped this. Pt is working on catching and reframing anxious thoughts that reinforce avoidance. Objective 2- in progress. Pt reports much less anxiety during group at [facility] than his first week, but pt still avoids in his regular life. Pt encouraged to continue working on small exposure goals. Team Recommendations:: Treatment team encourages pt to continue working on this goal to increase self-confidence and reduce avoidance. Therapist encouraged pt to increase his verbal contributions during group to work on exposure and building confidence. Treatment team also recommends pt continue working on thought challenging.
--- NOTE | 2022-10-02 09:10 | BH.SGPN.GN ---
Behaviors/Verbalizations/Mental Status: [] Eye contact is good. Motor activity is appropriate. Appearance is casual. Speech is Appropriate. Mood is depressed. Affect is flat. Thoughts are linear and logical. No evidence of psychosis. Reviewed daily check in sheet and no reports of suicidal ideations or intent. Client Response/Progress/Benefit: [] Pt participated when prompted. Attentive. Emotion for today is tired. Daily symptom tracker notes 2/5 for depression and /5 for anxiety. Shared with the group that he is been isolating more this weekend. Reports that being alone is where he feels most comfortable. Group discussed benefits and negative to isolation as well as ways to identify if one's isolation is negatively impacting one's life. Shared that he is practiving skills such as oppositve-action which has increased his productivity. Progress is variable. Will continue in IOP to maintain safety, prevent decompensation/re-admission, and to improve fuinctioning. Narrative Note: []
--- NOTE | 2022-10-02 10:20 | BH.SGPN.GN ---
Behaviors/Verbalizations/Mental Status: []Pt alert and oriented, neatly dressed and groomed. Eye contact good. Motor activity appropriate. Speech within normal limits. Affect congruent, mood calm. Thoughts linear, logical, no signs of hallucinations or delusions. Client Response/Progress/Benefit: []Pt participated in group discussions. Attentive during psychoeducation on stages of change. Participated during experiential activity. Interactive group discussion on why change is difficult in which group verbalized that change involves the unknown, is scary, leads to uncertainly, makes one feel vulnerable, leads to fear of failure, and triggers the pressure of success. Pt feels that change can be good, but pt often gets anxious about ?where to start with change.? Pt benefitted from increased awareness of stages of changes and how emotions impact change. Will continue IOP tx to promote mood stability, increase ability to challenge distortions, and improve self-confidence. Narrative Note: []
--- NOTE | 2022-10-02 11:20 | BH.SGPN.GN ---
Behaviors/Verbalizations/Mental Status: []Pt alert and oriented, casually dressed and groomed. Eye contact good. Motor activity appropriate. Speech within normal limits. Affect congruent, mood anxious and content. Thoughts linear, logical, no signs of hallucinations or delusions. Client Response/Progress/Benefit: []Pt responded well to session, attentive. Did well to process activity and work with group to relate the strategies used to overcome barriers in the activity to managing change in own life. Pt identified wanting to work on improving his ability to accept his his negative thought patterns and begin changing his perspective to a more hopeful one. Shared struggling with self-doubt regarding his ability to maintain this change. Shared following through with this change will improve his mood and relationship with himself. Pt identified he can use positive self-talk, art, and writing to aid in managing this change. Pt will continue IOP tx to further improve mood stability, promote continued communication with supports, and prevent decompensation. Narrative Note: []
--- NOTE | 2022-10-04 09:05 | BH.SGPN.GN ---
Behaviors/Verbalizations/Mental Status: [] Pt alert and oriented, neatly dressed and groomed. Eye contact good. Motor activity appropriate. Speech within normal limits. Affect flat, mood apathetic. Thoughts linear, logical, no signs of hallucinations or delusions. Reviewed pt?s symptom tracker, no risk for suicidal ideation, plan, or intent 10/04/22 Client Response/Progress/Benefit: []Pt responded well to session, attentive but quiet. Pt reports feeling blah this morning, but has no significant stressor per his report. Pt feels blah because pt reports I'm feeling better, so the next shoe is going to drop. Therapist attempted to help group challenge this thought patterns as it can keep pts from recognizing and enjoying progress. Pt did give himself credit for making dinner the other night and spending time with his niece recently. Pt appeared to benefit from connecting with peers. Pt will continue IOP tx to promote mood stability, increase ability to challenge distortions, and improve daily functioning. Narrative Note: []
--- NOTE | 2022-10-04 12:25 | PCM.BH.PN_ITS ---
Progress Note Progress Note: History of Present Illness/Interim History: The patient is a 32-year-old single male with a history of depression for many years who is seen in follow-up at the [facility] behavioral [facility] IOP program. I last saw the patient 2 weeks ago and his Zoloft was increased to 50 mg p.o. daily. The patient is feels he is making progress and is less depressed than before. He feels he is learning valuable skills in the IOP program. He is making progress and participating well according to the staff. He is still engages in a lot of negative rumination and still is doing some isolation and avoidance. He denies any thoughts of self-harm. He still has occasional passive thoughts that he would not care if he but less often. He has passive, fleeting suicidal ideation only rarely lately. Continues to use marijuana about 3 bowls a week. He continues to work on his issues with wanting to be fulfilled and holding a job. Current Psychiatric Medications: [] Zoloft 50 mg p.o. daily (x2 weeks) Mental Status Examination: [] The patient is a 32-year-old male with a arana who appears normal for stated age and is casually dressed and groomed with good hygiene. He is ambulatory with a normal gait. He has no psychomotor agitation or retardation. Eye contact is good and speech is normal rate and rhythm and fluent with no pressure. Mood is depressed. Affect is constricted. Thought process is goal-directed and organized. Thought content: There is evidence of passive thoughts of and passive, fleeting suicidal ideation a few times a week. There is no evidence of thoughts of self-harm anymore. There is no evidence of plan for suicide, active suicidal ideation, homicidal ideation, hallucinations or delusions or symptoms of roro. Reality testing is intact. Judgment is intact. Insight is limited. Impulsivity is high. Diagnoses: [] 1. Major depressive disorder, recurrent, severe without psychosis 2. Generalized anxiety disorder 3. Cluster B traits 4. Cannabis use disorder 5. History of alcohol use disorder 6. Primary support, work and financial issues. Plan: [] Patient will continue the IOP program as the structure, support, education and group therapy will hopefully prevent worsening of the patient's symptoms. He felt safe during the interview and if it anytime he does not feel safe he will let us know or go to the emergency room. The risk, options, possible complications and side effects of the medications were again discussed with the patient and he understands and accepts these. The patient agrees to increase his Zoloft to 75 mg p.o. daily for 2 weeks and then increase to 100 mg p.o. daily. The he will continue to follow-up with his outpatient providers and I will see the patient in follow-up in several weeks.
--- NOTE | 2022-10-05 09:05 | BH.SGPN.GN ---
Behaviors/Verbalizations/Mental Status: []Pt alert and oriented, casually dressed and groomed. Eye contact good. Motor activity appropriate. Speech within normal limits. Affect congruent, mood anxious and euthymic. Thoughts linear, logical, no signs of hallucinations or delusions. Reviewed pt?s symptom tracker, no suicidal ideation reported, denies plan, or active intent as of 10/05/22. Client Response/Progress/Benefit: []Pt responded well to session, open to processing with group and engaged. Pt reports feeling content this morning. Did well to identify current wins which included spending time drawing as a means of self-care, as well as helping his sister with the dishes. Discussed looking forward to continuing to get back into drawing as it is something he enjoys doing. Current stressor noted as ongoing difficulties with accepting the need for psychiatric medication. Discussed that although he does not like it, he understands it is necessary for continued progress. Pt appeared to benefit from supportive feedback of the group, as well as reflecting on mental health wins. Pt will continue IOP tx to promote mood stability, improve self-care, and continue to prevent decompensation. Narrative Note: []
--- NOTE | 2022-10-05 10:10 | BH.SGPN.GN ---
Behaviors/Verbalizations/Mental Status: []Eye contact is good. Motor activity is appropriate. Appearance is casual. Speech is Appropriate. Mood is anxious. Affect is congruent. Thoughts are linear and logical. No evidence of psychosis. Client Response/Progress/Benefit: []Pt was an active participant in group discussion. Attentive during psychoeducation on SMART goals. Participated in experiential activity. Engaged during interactive discussion on the benefits of setting goals which group identified as; increase self-worth, increase confidence, can motivate us, can lead to personal growth, and can give one a sense of purpose. Participated during interactive discussion on possible obstacles to obtaining goals and pt self-identified barriers as poor time management skills and self-sabotaging through procrastination. Benefited from increased understanding of benefits of goals, obstacles to obtaining goals, and methods for setting appropriate goals (SMART goals). Will continue in IOP to promote mood stability, increase self-confidence, and improve daily functioning. Narrative Note: []
--- NOTE | 2022-10-05 11:10 | BH.SGPN.GN ---
Behaviors/Verbalizations/Mental Status: []Pt alert and oriented, casually dressed, appropriately groomed. Eye contact fair. Motor activity appropriate. Speech within normal limits. Affect constricted, mood anxious. Thoughts linear, logical, no signs of hallucinations or delusions. Client Response/Progress/Benefit: []Pt was engaged during discussion and willing to complete the worksheet challenging them to develop a personal SMART goal. Pt chose the goal of drawing for one hour every other day. Pt stated this will benefit them by giving him an outlet for self-care and allows him to decompress. Pt identified barriers which included self criticism, low motivation, and low inspiration. Identified for low motivation he can include it in his schedule and make it as a priority. Pt receptive to identifying solutions for these barriers and willing to begin working on this goal. Benefited from this group by developing a short-term SMART goal related to mental health. Will continue IOP to increase consistent use of healthy coping, challenging distorted thoughts, and prevent decompensation.
--- NOTE | 2022-10-05 11:15 | BH.SGPN.GN ---
Behaviors/Verbalizations/Mental Status: [] Client alert and oriented, neatly dressed and groomed. Eye contact good. Motor activity appropriate. Speech within normal limits. Affect congruent, mood anxious and content. Thoughts linear, logical, no signs of hallucinations or delusions. Client Response/Progress/Benefit: [] Client responded well to session AEB taking notes and providing input and examples throughout. Group discussed the different categories of coping skills which included distraction, emotional release, grounding, self-love, and thought challenging. Client created a coping skill menu identifying various skills to try in each category. Client?s coping skill menu included: talking to supports, nature, engaging in hobbies, andlooking at the information for or against a thought. Appeared to benefit from increasing repertoire of healthy coping skills. Client will continue IOP tx to continue to improve daily functioning, engag in hobbies and interests, and prevent decompensation. Narrative Note: []
--- NOTE | 2022-10-05 14:23 | BH.MDN ---
Multi-Disciplinary Note Note 30-min Individual: Time Started:: 10:38 Date: 10/04/22 Purpose of session/treatment goals addressed:: To work on goal #1 of pt's treatment plan by setting goals for communication and engaging in old hobbies. Eye Contact:: Good Motor Activity:: Appropriate Appearance:: Casual Speech:: Appropriate Mood:: Euthymic Affect:: Constricted Thoughts:: Linear, Logical and No evidence of hallucinations/delusions noted Staff Interventions:: thought challenging, motivational interviewing, CBT techniques, strengths perspective and goal setting Client Response:: Pt responded well to session, open to meeting with therapist. Pt reports progress in less isolation and being more productive at home. Pt shared he is glad that he is feeling better, but he is also anxious because it feels too good to be true. Pt receptive to challenging this thought pattern and utilizing cognitive restructuring. Pt wrote out specific worries to be what if I fall back into old patterns what if people get tired of helping me and what if I can't cope with it. Pt able to identify coping skills he can use to prevent falling back into old patterns such as talking with his sister, using opposite action, and going for walks. Pt also encouraged to get back into drawing and pt set a goal to draw for 10 minutes each day. For the thought of what if people get tired of helping me pt shared he does not have any evidence to support this. Pt also able to see how his family loves him and just enjoys helping pt without expectations. Pt reported he might feel better if he talks with his sister about what he can contribute around the house. Pt will talk with his sister sarbjit. Pt has been keeping track of his wins and this has been helpful, so pt will keep doing this. Risks/Concerns:: No report of active SI and per pt's daily symptom tracker, pt has not had any thoughts of suicide for over a week. Pt does still have some thoughts of , but these are decreasing. Progress Toward Goals/Plan:: Pt continues to make progress towards his treatment goals AEB pt's consistent attendance and engagement in group. Pt is reporting improving mood and responding well to the medication changes. Pt reports functioning is improving and he is isolating less. Pt does continue to struggle with negative thinking patterns that reinforce fear of failure and keep pt from getting back to hobbies that he used to enjoy. Pt is receptive to working on this and set goals to draw each day. Pt will continue IOP tx to promote mood stability, increase self-confidence, and improve daily functioning. Time Stopped:: 11:11
--- NOTE | 2022-10-10 09:05 | BH.SGPN.GN ---
Behaviors/Verbalizations/Mental Status: [] Eye contact is good. Motor activity is appropriate. Appearance is casual. Speech is Appropriate. Mood is anxious. Affect is congruent. Thoughts are linear and logical. No evidence of psychosis. Reviewed daily check in sheet and no reports of suicidal ideations or intent. Client Response/Progress/Benefit: [] Pt participated when prompted. Attentive. Daily symptom tracker notes 2/5 for depression and anxiety. Emotion for today is compliant. Mental health win is getting stuff done over the weekend. Shared that his mother is visiting from [place] and she has asked him to spend leave [place] and spend a couple weeks with her in [place]. Pt is unsure if this is the best decision for his mental health as there are some things there I don't want to be around. He elaborated on his concerns in more detail and group helped him identify reasons for and against the trip. Pt admits that he struggles with change and being social therefore increase anxiety about leaving current routine. Progress noted per pt report as he notes somewhat stable mood over the past weeks. Benefited from group support, encouragement, and feedback. Will continue in IOP to prevent decompensation/re-admission, increase healthy coping, and improve functioning. Narrative Note: []
--- NOTE | 2022-10-10 10:10 | BH.SGPN.GN ---
Behaviors/Verbalizations/Mental Status: []Eye contact is good. Motor activity is appropriate. Appearance is casual. Speech is Appropriate. Mood is anxious and euthymic. Affect is congruent. Thoughts are linear and logical. No evidence of psychosis. Client Response/Progress/Benefit: []Pt was an active participant in group discussions. Engaged and provided feedback with group on defining anxiety. Along with peers, pt worked to identify the benefits of anxiety. Participated during interactive discussion on how anxiety impacts one physically, cognitively, and behaviorally. Completed worksheet on how anxiety impacts pt physically, cognitively, and behaviorally. Pt shared physically pt experiences sweating, difficulty sleeping, and restlessness. Benefited from increased insight into anxiety's benefits and how diagnosable anxiety impacts functioning. Will continue in IOP tx to promote application of calming skills and thought challenging, and further increase mood stability. Narrative Note: []
--- NOTE | 2022-10-10 11:10 | BH.SGPN.GN ---
Behaviors/Verbalizations/Mental Status: []Pt casually dressed and groomed. Eye contact fair. Motor activity appropriate. Speech within normal limits. Affect constricted, mood slightly anxious. Thoughts linear, logical, no signs of hallucinations or delusions. Client Response/Progress/Benefit: []Pt was a passive participant in full group discussion, however did take notes, attentive to others, and showed increased engagement in small group discussion. Pt identified anxiety safety behaviors for self to include: not eating, taking on others problems, substance use, isolation, and not talking. Attentive during psychoeducation on mindfulness and ways to utilize mindfulness techniques to improve anxiety management. The group receptive to learning about belly breathing and grounding tools. Engaged and attentive during group brainstorm of healthy anxiety reduction skills including thought challenging and behavioral changes. Appeared to benefit from practicing in the moment coping skills and increasing repertoire of anxiety management skills. Pt stated fidget tools and mental stimulation tasks/activities as skills would like to practice over the next week. Pt will continue IOP tx to continue use of healthy coipng skills, challenge thoughts, and prevent decompensation.
--- NOTE | 2022-10-11 09:00 | BH.SGPN.GN ---
Behaviors/Verbalizations/Mental Status: []Pt eye contact good, neat and casually dressed, motor activity appropriate, speech normal rate and tone, mood anxious and euthymic, congruent affect, thoughts linear and intact, no evidence of delusions or hallucinations. Per pt's symptom tracker, no risks noted. Client Response/Progress/Benefit: []Pt responded well to session, attentive and engaged. Pt reports feeling intrigued by life today and pt shared this perspective alone shows how much he has progressed. Pt shared when he started IOP tx he was hopeless and did not see a future. Pt now feels more hopeful, motivated, and present in his life. Pt reported his wins today as getting done with laundry and other tasks around the house. Pt plans to discharge from IOP and go visit his mother in [place] for a few weeks. Pt shared this will be good, but pt is also anxious. Pt stated what he learned in IOP is to lean into his fears. Pt appeared to benefit from reflecting on his progress and identifying wins. Pt will continue IOP tx for one more day to reinforce healthy coping skills and establish aftercare. Narrative Note: []
--- NOTE | 2022-10-11 10:10 | BH.SGPN.GN ---
Behaviors/Mental Status: [] Eye contact is fair. Motor activity is appropriate. Appearance is casual. Speech is Appropriate. Mood is anxious. Affect is congruent. Thoughts are linear and logical. No evidence of psychosis. Client Response/Progress/Benefit: [] Pt engaged participant AEB listening attentively to others and providing feedback at times. Participated in and was engaged during experiential activity. Engaged during interactive discussion on what failure means to the group in which peers identified that failure is ... not meeting expectations, not having a desired outcome, and not succeeding in a task. Group was able to identify impact of fear of failure. Attentive during interactive discussion on the role that FOF plays in mental wellness, depression, anxiety, and growth. Benefited from increased awareness of how the role that FOF plays in mental health and decision-making. Will continue in IOP to challenge negative thinking, continue use of healthy coping, and prevent decompensation.
--- NOTE | 2022-10-11 15:04 | BH.MDN ---
Multi-Disciplinary Note Note 30-min Individual: Time Started:: 11:30 Date: 10/11/22 Purpose of session/treatment goals addressed:: To complete a maintenance plan and discuss aftercare. Eye Contact:: Good Motor Activity:: Appropriate Appearance:: Neat Speech:: Appropriate Mood:: Euthymic and Anxious Affect:: Full Thoughts:: Linear, Logical and No evidence of hallucinations/delusions noted Staff Interventions:: CBT techniques, discharge planning, strengths perspective and other (completed maintenance plan to promote gains.) Client Response:: Pt responded well to session, open to meeting with therapist. Pt shared he decided to graduate from [facility] early so he can go with his mother back to [place] and spend time with family he has not seen in years. Pt shared he is anxious about this, but also excited. Pt feels that he is ready to face more things that make him anxious which is something pt learned in [facility]. Pt receptive to working on a maintenance plan to help pt stay well and prevent relapse. Pt's plan including triggers, warning signs, coping skills, and self-care to help pt manage depression and anxiety. Pt noted that keeping up with a daily routine like showering, doing something creative, and doing a chore has been extremely helpful. Pt also shared that continuing to talk with his family and give himself credit for things will help maintain gains as well. Pt will discharge from [facility] tx tomorrow. Risks/Concerns:: Pt denies any suicidal ideations, plan, or intent for the past several weeks. Pt is hopeful and future oriented. Progress Toward Goals/Plan:: Pt will be discharging a little early from [facility] to go spend time with his mother in [place]. Pt has made significant progress while in [facility] tx AEB self-report of reduced negative thinking patterns, improve daily functioning, less isolation, and improved mood. Pt is connected with outpatient services through Dr. Abernathy for medication management and [facility] for individual counseling. Pt will come for one more [facility] tx day to reinforce healthy coping skills and provide closure. Time Stopped:: 12:05
--- NOTE | 2022-10-11 15:14 | BH.IGGP_ITS ---
Aftercare Plan Demographics Treatment End Date:: 10/12/22 Psychiatrist:: Mary Grace Phan Psychiatrist Office #:: [phone] [facility]/IOP Therapist:: Mary Souza Therapist Phone #:: [phone] Medications Home Medications sertraline 100 mg tablet (Zoloft) 100 mg PO DAILY 30 days #30 tabs 10/04/22 Plan Details Progress/Aftercare Plan Details:: Sin has responded well to treatment as evidenced by Sin consistently attending IOP sessions and his reduction of DSM-5 scores since admission. Sin was always attentive and receptive to learning during group and individual sessions. Sin actively applied coping skills outside of IOP, reports overall his mood is improved, and he is functioning better than he was several months ago. Sin?s overall symptom reduction is 42% since admission with anger decreasing by 50%, depression decreasing by 43%, and anxiety decreasing by 56%. Sin has increased self- confidence in his ability to manage anxiety overcoming fears. Sin did well with using opposite action which helped him get back into being creative and keeping up with a routine. Strategies for Success:: 1. Opposite action! Continue to break that cycle of anxiety and depression by not letting emotions be the only drivers of your bus. 2. Remember that thoughts are thoughts NOT facts! You have power in if you give thoughts the time of day or not. 3. self-care! You deserve to take time for you and you also deserve to face the not so fun self-care like sitting with the uncomfortable 4. Self-compassion! You are human and you will make a mistake?BUT that doesn?t mean you are a failure or not good enough. Give yourself credit for all the wonderful things you do. 5. continue working on your fear ladder! You have done so well with it. 6. Practice positive self-talk and keep track of your wins. 7. Remember progress isn?t linear! You may have a setback or bump in the road, but that doesn?t mean you?ve lost all progress. 8. Keep up with a routine! 9. Delay, Distract, Decide 10. Live in the cardoza!! Appointments Appointments/Referrals to Other Services:: 1. Dr. Abernathy on 11/15/[address] Palafox at [facility] on 11/02/22.
--- NOTE | 2022-10-12 09:04 | BH.SGPN.GN ---
Behaviors/Verbalizations/Mental Status: [] Pt eye contact good, casually dressed, motor activity appropriate, speech normal rate and tone, mood euthymic and content, congruent affect, thoughts linear and intact, no evidence of delusions or hallucinations. Per pt's symptom tracker, no report of SI, plan, or intent as of this date. Client Response/Progress/Benefit: [] Client responded well to session as evidenced by listening attentively to others and sharing thoughts and feelings. Client reported mental health positive as getting everything packed for his upcoming trip to visit his mother in [place]. Additional win noted as continuing to make art a self-care priority for him. Discussed improved mood as a result. Current stressor noted as feeling like he may have forgotten to pack something. Seemed to benefit from support from peers. Client to d/c from [facility] and encouraged to follow-up with outpatient providers following return from his trip to continue use of healthy coping skills, maintain mood stability, and prevent decompensation. Narrative Note: []
--- NOTE | 2022-10-12 10:12 | BH.SGPN.GN ---
Behaviors/Verbalizations/Mental Status: []Pt alert and oriented, casually dressed and groomed. Eye contact good. Motor activity appropriate. Speech within normal limits. Affect congruent, mood euthymic and anxious. Thoughts linear, logical, no signs of hallucinations or delusions. Client Response/Progress/Benefit: []Pt was an active participant in group discussions. Attentive during psychoeducation on 4 types of conflict styles (Competing, Collaborating, Avoiding, and Accommodating). Worked with group to define conflict and identify how conflict is helpful. With peers identified barriers to addressing or managing conflict which included: not wanting to hurt others, lack of communication skills, and cognitive distortions. Pt believes they use the accommodating style the most. Pt shared being accommodating has made pt ?lose sight of my values and needs.? Pt stated he has been working on being more assertive and this has been helpful. Benefited from group due to increase insight and awareness of benefits to conflict, conflict styles, and obstacles to managing conflict. Will discharge from IOP tx today as pt has met his tx goals and plans to go to [place] for several weeks. ?? Narrative Note: []
--- NOTE | 2022-10-12 11:10 | BH.SGPN.GN ---
Behaviors/Verbalizations/Mental Status: [] Eye contact is good. Motor activity is appropriate. Appearance is casual. Speech is Appropriate. Mood is depressed. Affect is congruent. Thoughts are linear and logical. No evidence of psychosis. Client Response/Progress/Benefit: [] Pt was an active participant in group discussions and activity. Attentive during psychoeducation. Pt was engaged during the group activity and practiced conflict resolutions skills with an emphasis on stepping outside his typical conflict style. Along with peers was able to reflect on what conflict resolution skills he used during the activity. Pt chose to continue to work on the conflict resolution skill of taking a time-out if things get to heated for the rest of the week. Benefited from practicing conflict resolution skills. Will continue in IOP to prevent decompensation/re-admission to psych unit, increase healthy coping, and to improve functioning. Narrative Note: []
--- NOTE | 2022-10-12 15:45 | BH.DS_ITS ---
Discharge Summary Demographics Date of Admission:: 09/04/22 Discharge Date: 10/12/22 Presenting Problems at Admission:: Pt is a 32-year-old male with a history of depression and anxiety. Pt was referred to [facility] tx following a recent psychiatric admission due to suicidal ideations with plans to hang or shoot himself. Pt currently endorses a depressed mood, lack of motivation, lack of energy, anhedonia, passive SI, ruminations, feeling like a burden, hopelessness, worthlessness, and negative view of self. Pt reports he isolates and withdraws from supports. Pt also has not been engaging in hobbies he used to enjoy. Pt's mental health is impacting his familial, social, and occupational functioning. Discharge Diagnoses:: Rule out bipolar, NOS; Major depressive disorder, recurrent, severe without psychosis; Cannabis use disorder; Cluster B traits; H istory of alcohol use disorder Reason for Discharge:: Pt has successfully completed his tx goals AEB his symptom reduction. Pt no longer meets criteria for [facility] level of care and will continue with outpatient counseling. Treatment Progress During Treatment & Response: Pt has responded well to treatment as evidenced by Pt consistently attending IOP sessions and his reduction of DSM-5 scores since admission. Pt was always attentive and receptive to learning during group and individual sessions. Pt actively applied coping skills outside of IOP, reports overall his mood is improved, and he is functioning better than he was several months ago. Pt?s overall symptom reduction is 42% since admission with anger decreasing by 50%, depression decreasing by 43%, and anxiety decreasing by 56%. Pt has increased self-confidence in his ability to manage anxiety overcoming fears. Pt did well with using opposite action which helped him get back into being creative and keeping up with a routine. Issues Still to be Addressed:: Low self-esteem, difficulty functioning in work environments, negative thought patterns, social anxiety, and increasing effective communication skills. Discharge Recommendations/Instructions:: Pt will follow up with Dr. Abernathy for medication management. His next appointment is 11/15/22. Pt will also follow up with Dr. Palafox for individual counseling on 11/02/22. Discharge Handout
== END 2022-10-12 12:05 | disposition home or self-care (01) ==
LOC: BHIOP 07:17
PROVIDERS: PCP Family Medicine; Referring Provider Psychiatry & Neurology Psychiatry; Visit Provider Psychiatry & Neurology Psychiatry
DX: F33.2 Major depressive disorder, recurrent severe without psychotic features (principal); F12.90 Cannabis use, unspecified, uncomplicated; F10.90 Alcohol use, unspecified, uncomplicated
CPT/HCPCS: 99213; 99214; H2012; H2020; S9480; 90832; 90834